=== PATIENT | female | born 1990 | race Caucasian/White ===

== ENCOUNTER 2017-04-22 15:46 | Emergency (ER) | payer OTHER | END 2017-04-22 16:51 | disposition home or self-care (01) | LOC: FTE 15:46 → E/R 16:51 | DX: H66.93 Otitis media, unspecified, bilateral (principal); J06.9 Acute upper respiratory infection, unspecified | CPT/HCPCS: 99284; Z7502 ==

== ENCOUNTER 2017-08-03 08:20 | Emergency (ER) | payer OTHER ==
[2017-08-03] MEDS: FAMOTIDINE 20 MG TAB PO (09:07)
[2017-08-03] MEDS: METHYLPREDNISOLONE 125 MG INJ IM (09:08)
[2017-08-03] MEDS: DIPHENHYDRAMINE 25 MG CAP PO (09:08)
== END 2017-08-03 09:55 | disposition home or self-care (01) ==
LOC: FTE 08:20
DX: L29.9 Pruritus, unspecified (principal)
CPT/HCPCS: 96372; 99284-25

== ENCOUNTER 2017-11-11 08:51 | Emergency (ER) | payer OTHER ==
[2017-11-11 10:02] LABS: URINE BLOOD (Dip) POC Trace-intact (NEGATIVE); URINE GLUCOSE (Dip) POC Negative (NEGATIVE); URINE KETONES (Dip) POC Negative (NEGATIVE); URINE LEUKOCYTE EST (Dip) POC 1+ (NEGATIVE); URINE NITRITE (Dip) POC Negative (NEGATIVE); URINE TOTAL PROTEIN POC Negative (NEGATIVE)
[2017-11-11 10:02] LABS: URINE PH (Dip) POC 5.5 (5.0-8.5)
[2017-11-11] MEDS: KETOROLAC 60 MG INJ IM (10:14)
== END 2017-11-11 11:15 | disposition home or self-care (01) ==
LOC: FTE 08:51
DX: M79.605 Pain in left leg (principal); R10.32 Left lower quadrant pain; M25.512 Pain in left shoulder; M79.602 Pain in left arm
CPT/HCPCS: 72170; 81003; 81025; 96372; 99284-25

== ENCOUNTER 2018-01-18 13:37 | Emergency (ER) | payer OTHER, BC ==
[2018-01-18] MEDS: IBUPROFEN 600 MG TAB PO (16:27)
[2018-01-18] MEDS: predniSONE 20 MG TAB PO (16:27)
== END 2018-01-18 16:44 | disposition home or self-care (01) ==
LOC: FTE 13:37
DX: J02.9 Acute pharyngitis, unspecified (principal)
CPT/HCPCS: 99283; J7512

== ENCOUNTER 2018-02-13 16:12 | Emergency (ER) | payer OTHER ==
[2018-02-13] MEDS: DIPHTH/TET/ACEL PERTUSS (ADULT) 0.5 ML VIAL IM* (19:03)
== END 2018-02-13 19:15 | disposition home or self-care (01) ==
LOC: FTE 16:12
DX: S51.852A Open bite of left forearm, initial encounter (principal); W54.0XXA Bitten by dog, initial encounter; Y92.9 Unspecified place or not applicable; Z23 Encounter for immunization
CPT/HCPCS: 90471; 90715; 99283-25

== ENCOUNTER 2018-03-03 18:09 | Emergency (ER) | payer OTHER ==
[2018-03-03] MEDS: AZITHROMYCIN 250 MG TAB PO (19:32)
[2018-03-03] MEDS: CEFTRIAXONE 250 MG INJ IM (19:33)
== END 2018-03-03 19:56 | disposition home or self-care (01) ==
LOC: FTE 18:09
DX: Z20.2 Contact with and (suspected) exposure to infections with a predominantly sexual mode of transmission (principal); Z77.21 Contact with and (suspected) exposure to potentially hazardous body fluids
CPT/HCPCS: 81025; 87591; 96372; 99284-25

== ENCOUNTER 2018-08-01 06:52 | Emergency (ER) | payer OTHER ==
[2018-08-01] MEDS: KETOROLAC 60 MG INJ IM (08:12)
== END 2018-08-01 08:15 | disposition home or self-care (01) ==
LOC: FTE 06:52
DX: L02.215 Cutaneous abscess of perineum (principal)
CPT/HCPCS: 81025; 96372; 99284-25

== ENCOUNTER 2018-08-02 17:14 | Emergency (ER) | payer OTHER ==
[2018-08-02] MEDS: KETOROLAC 60 MG INJ IM (17:51)
[2018-08-02] MEDS: LIDOCAINE 1% (MDV) 20 ML INJ SC (17:52)
== END 2018-08-02 19:20 | disposition home or self-care (01) ==
LOC: FTE 19:20
DX: L02.215 Cutaneous abscess of perineum (principal)
CPT/HCPCS: 56405; 96372; 99284-25